=== PATIENT | male | born 1975 | race Hispanic/Latino ===

== ENCOUNTER 2018-03-11 09:06 | Emergency (ER) | payer OTHER ==
[2018-03-11 09:23] VITALS: TEMP 97.4; O2SAT 97
--- NOTE | 2018-03-11 09:51 | RAD ---
PROCEDURE: XR Right Hand Complete, 3 or More Views CLINICAL INDICATION: The patient is 42 years old and is Male; pain after trauma TECHNIQUE: Frontal, lateral and oblique views of the right hand. COMPARISON: Prior views of the RIGHT 5th digit from 10/25/2007 FINDINGS: BONES/JOINTS: The prior fracture at the base of the 5th proximal phalanx is no longer appreciated and there is no visible deformity. The site of pain is not given, which can reduce plain film sensitivity by up to 50%. No acute fracture or dislocation is identified in the RIGHT hand. SOFT TISSUES: Unremarkable.No radiopaque foreign body. No significant soft tissue swelling noted. IMPRESSION: 1. The prior fracture at the base of the 5th proximal phalanx is no longer appreciated and there is no visible deformity. 2. No acute fracture or dislocation is identified in the RIGHT hand. Electronically signed by: Andrew Lim MD 03/11/2018 9:50 AM CDT
--- NOTE | 2018-03-11 10:15 | ED.PDOC ---
History of Present Illness - General Chief Complaint: Upper Extremity Injury Stated Complaint: injured rt hand Time Seen by Provider: 03/11/18 09:33 Source: patient Exam Limitations: no limitations - History of Present Illness Initial Comments: Patient presents complaining of pain in the right hand after dropping a bar and striking it against the ground. The pain is mid-palmar, anterior, non-radiating , constant, throbbing, worse with movement, better with rest. He has injured the right 5th digit in the past. No other injuries nor complaints. Timing/Duration: 24 hours Improving Factors: rest Worsening Factors: movement Associated Symptoms: denies symptoms Allergies/Adverse Reactions: Allergies NO KNOWN ALLERGY Allergy (Verified 03/11/18 10:19) Review of Systems - Review of Systems Constitutional: States: no symptoms reported, see HPI EENTM: States: no symptoms reported Respiratory: States: no symptoms reported Cardiology: States: no symptoms reported Gastrointestinal/Abdominal: States: no symptoms reported Genitourinary: States: no symptoms reported Musculoskeletal: States: see HPI Skin: States: no symptoms reported Neurological: States: no symptoms reported Endocrine: States: no symptoms reported Hematologic/Lymphatic: States: no symptoms reported Past Medical History (General) - Patient Medical History Hx Seizures: No Hx Stroke: No Hx Asthma: No Hx Cardiac Disorders: No Hx Hypertension: No Hx Diabetes: No Surgical History: no surgical history - Vaccination History Hx Tetanus, Diphtheria Vaccination: Yes - unknown date Hx Influenza Vaccination: No Hx Pneumococcal Vaccination: No Immunizations Up to Date: Yes - Social History Hx Tobacco Use: No Hx Alcohol Use: Yes Hx Depression: No Family Medical History - Family History Mother Family History: Unknown Physical Exam - Physical Exam General Appearance: Alert Respiratory: lungs clear, normal breath sounds Cardiovascular/Chest: normal peripheral pulses, regular rate, rhythm Peripheral Pulses: radial,right: 2+, radial,left: 2+ Gastrointestinal/Abdominal: normal bowel sounds, non tender, soft Extremity: other - Mild TTP over anterior right palm. 5/5 strength to flexion/ extension of the right fingers as well as adduction/abduction of the right fingers. 5/5 strength to flexion/extension/adduction/abduction of the right wrist. 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 Tetanus booster given. E.R. warnings given. Care instructions given. Questions were elicited and answered. Patient voiced understanding and agreement with the plan. Departure - Departure Clinical Impression: Contusion of right hand Disposition: Discharge to Home or Self Care Condition: Good Departure Forms: ED Discharge - Pt. Copy, Patient Portal Self Enrollment Instructions: DI for Arm Pain Diet: resume usual diet Activity: increase activity as tolerated Additional Instructions: Use ice three times per day for three days for pain and swelling. You can use ibuprofen for pain as well. If the hand is still painful after one week, return to the E.R. for another x-ray.
[2018-03-11] MEDS ORDERED: TETANUS,DIPHTHERIA,PERTUSSIS 1 EA SYG IM ONE (10:19)
[2018-03-11 10:32] VITALS: BP 126/86
== END 2018-03-11 10:40 | disposition home or self-care (01) ==
LOC: ER 09:06
DX: S61.411A Laceration without foreign body of right hand, initial encounter (principal); Z23 Encounter for immunization; W22.8XXA Striking against or struck by other objects, initial encounter; Y93.89 Activity, other specified; Y92.009 Unspecified place in unspecified non-institutional (private) residence as the place of occurrence of the external cause